=== PATIENT | female | born 1965 | race American Indian/Alaskan Native ===

== ENCOUNTER 2017-04-26 09:02 | Emergency (ER) | payer OTHER ==
[2017-04-26 10:17] LABS: Basophils % (Auto) 0.5 % (0.0-1.8); Eosinophils % (Auto) 0.1 % (0.0-4.3); Hematocrit 44.9 % (30.3-42.9); Hemoglobin 14.6 gm/dl (10.1-14.3); Mean Corpuscular HGB Conc 33 % (30-34); Mean Corpuscular Hemoglobin 29 pg (28-32); Mean Corpuscular Volume 90 fl (79-97); Platelet Count 261 K/mm3 (140-440); Red Blood Count 5.01 M/mm3 (3.65-5.03); Red Cell Distribution Width 14.1 % (13.2-15.2); White Blood Count 12.4 K/mm3 (4.5-11.0)
[2017-04-26 10:39] LABS: Alanine Aminotransferase 11 units/L (7-56); Albumin 4.6 g/dL (3.9-5); Albumin/Globulin Ratio 1.2 %; Alkaline Phosphatase 82 units/L (35-129); Anion Gap 21 mmol/L; BUN/Creatinine Ratio 14.28; Blood Urea Nitrogen 10 mg/dL (7-17); Calcium 9.8 mg/dL (8.4-10.2); Carbon Dioxide 25 mmol/L (22-30); Chloride 97.9 mmol/L (98-107); Glucose 129 mg/dL (65-100); Lipase 25 units/L (13-60); Potassium 3.6 mmol/L (3.6-5.0); Sodium 140 mmol/L (137-145); Total Protein 8.5 g/dL (6.3-8.2)
[2017-04-26] MEDS ORDERED: NACL 0.9% 1000 ML 1,000 ML IV ONE ×2 (13:38→16:35)
[2017-04-26] MEDS ORDERED: ZOFRAN IV ONE (13:38)
[2017-04-26] MEDS ORDERED: MORPHINE IV ONE (13:38)
--- NOTE | 2017-04-26 13:42 | Emergency Department Report ---
ED N/V/D HPI - General Chief complaint: Nausea/Vomiting/Diarrhea Stated complaint: PANCREATITIS/VOMITING X 2 DAYS Time Seen by Provider: 04/26/17 13:10 Source: patient Mode of arrival: Ambulatory Limitations: No Limitations - History of Present Illness Initial comments: 51-year-old female here with complaint of abdominal pain. Patient states that she's been recently drinking alcohol due to in the family. Over the last several days she's been having increasing abdominal pain. She states that she' s also had some nausea vomiting and diarrhea. She says someone told her she "may have pancreatitis". She denies fevers chills. Symptoms have been worsening for the past couple days. Her symptoms worsen with food. MD complaint: nausea, vomiting, diarrhea -: Gradual Description of Vomiting: watery Description of Diarrhea: water Location: epigastric Radiation: none Severity: moderate Quality: cramping Improves with: none Worsens with: eating - Related Data Previous Rx's Medication Instructions Recorded Last Taken Type Hydrocodone Bit/Acetaminophen 1 - 2 each PO Q6H PRN #20 tablet 06/24/13 Unknown Rx [Lortab 5-500 Tablet] Neomy/Polymyx B/Hc (Otic) Soln 4 drops OT TID #1 bottle 06/24/13 Unknown Rx [Cortisporin (Otic) Soln] Acetaminophen [Acetaminophen TAB] 1,000 mg PO Q6HR #60 tablet 04/26/17 Unknown Rx Naproxen [Naprosyn] 375 mg PO BID PRN #30 tablet 04/26/17 Unknown Rx Sulfamethoxazole/Trimethoprim 1 tab PO BID #14 tab 04/26/17 Unknown Rx [Bactrim 400-80 mg] Allergies Allergy/AdvReac Type Severity Reaction Status Date / Time No Known Allergies Allergy Unverified 06/24/13 05:37 ED Review of Systems ROS: Stated complaint: PANCREATITIS/VOMITING X 2 DAYS Other details as noted in HPI Comment: All other systems reviewed and negative Constitutional: denies: chills, fever Eyes: denies: eye pain, eye discharge, vision change ENT: denies: ear pain, throat pain Respiratory: denies: cough, shortness of breath, wheezing Cardiovascular: denies: chest pain, palpitations Endocrine: no symptoms reported Gastrointestinal: abdominal pain, nausea, vomiting, diarrhea Genitourinary: denies: urgency, dysuria, discharge Musculoskeletal: denies: back pain, joint swelling, arthralgia Skin: denies: rash, lesions Neurological: denies: headache, weakness, paresthesias Psychiatric: denies: anxiety, depression Hematological/Lymphatic: denies: easy bleeding, easy bruising ED Past Medical Hx - Past Medical History Hx Hypertension: Yes Additional medical history: Fibroids. PANCREATITIS - Surgical History Past Surgical History?: No - Family History Family history: no significant - Social History Smoking Status: Current Every Day Smoker Substance Use Type: Alcohol, Marijuana - Medications Home Medications: Home Medications Medication Instructions Recorded Confirmed Last Taken Type Hydrocodone Bit/Acetaminophen 1 - 2 each PO Q6H PRN #20 tablet 06/24/13 Unknown Rx [Lortab 5-500 Tablet] Neomy/Polymyx B/Hc (Otic) Soln 4 drops OT TID #1 bottle 06/24/13 Unknown Rx [Cortisporin (Otic) Soln] Acetaminophen [Acetaminophen TAB] 1,000 mg PO Q6HR #60 tablet 04/26/17 Unknown Rx Naproxen [Naprosyn] 375 mg PO BID PRN #30 tablet 04/26/17 Unknown Rx Sulfamethoxazole/Trimethoprim 1 tab PO BID #14 tab 04/26/17 Unknown Rx [Bactrim 400-80 mg] ED Physical Exam - General Limitations: No Limitations General appearance: alert, in no apparent distress - Head Head exam: Present: atraumatic, normocephalic - Eye Eye exam: Present: normal appearance. Absent: scleral icterus, conjunctival injection - ENT ENT exam: Present: mucous membranes dry - Neck Neck exam: Present: normal inspection - Respiratory Respiratory exam: Present: normal lung sounds bilaterally. Absent: respiratory distress - Cardiovascular Cardiovascular Exam: Present: regular rate, normal rhythm, normal heart sounds. Absent: systolic murmur, diastolic murmur, rubs, gallop - GI/Abdominal GI/Abdominal exam: Present: soft, tenderness, normal bowel sounds. Absent: distended, guarding, rebound (mild epigastric tenderness) - Extremities Exam Extremities exam: Present: normal inspection - Back Exam Back exam: Present: normal inspection. Absent: CVA tenderness (R), CVA tenderness (L) - Neurological Exam Neurological exam: Present: alert, oriented X3 - Psychiatric Psychiatric exam: Present: normal affect, normal mood - Skin Skin exam: Present: warm, dry, intact, normal color. Absent: rash ED Course Vital Signs 04/26/17 04/26/17 04/26/17 09:39 16:07 18:34 Temperature 98.8 F 99.1 F 98.9 F Pulse Rate 91 H 50 L 58 L Respiratory 18 18 18 Rate Blood Pressure 125/89 Blood Pressure 165/95 123/76 [Right] O2 Sat by Pulse 100 100 100 Oximetry ED Medical Decision Making - Lab Data Result diagrams: 04/26/17 09:55 04/26/17 09:55 Laboratory Results - last 24 hr 04/26/17 04/26/17 09:55 09:55 WBC 12.4 H RBC 5.01 Hgb 14.6 H Hct 44.9 H MCV 90 MCH 29 MCHC 33 RDW 14.1 Plt Count 261 Lymph % (Auto) 22.3 [place] % (Auto) 6.3 Eos % (Auto) 0.1 Baso % (Auto) 0.5 Lymph # 2.8 [place] # 0.8 Eos # 0.0 Baso # 0.1 Seg Neutrophils % 70.8 H Seg Neutrophils # 8.8 H Sodium 140 Potassium 3.6 Chloride 97.9 L Carbon Dioxide 25 Anion Gap 21 BUN 10 Creatinine 0.7 Estimated GFR > 60 BUN/Creatinine Ratio 14.28 Glucose 129 H Calcium 9.8 Total Bilirubin 0.60 AST 17 ALT 11 Alkaline Phosphatase 82 Total Protein 8.5 H Albumin 4.6 Albumin/Globulin Ratio 1.2 Lipase 25 - Medical Decision Making 51-year-old female with a history of pancreatitis here with complaint of abdominal pain. Patient states she's recently been drinking due to a in the family. On arrival is mildly tender epigastrium and appeared slightly dehydrated. Her labs were unremarkable. She did not have an acute abdomen and I do not believe that she needed to be admitted to the hospital for this. No further imaging warranted. She was given 2 rounds of pain medications and was able to tolerate by mouth she was discharged. Portions of this chart were dictated with dictation software. There may be dictation errors contained within this note. Critical care attestation.: If time is entered above; I have spent that time in minutes in the direct care of this critically ill patient, excluding procedure time. ED Disposition Clinical Impression: Pancreatitis Qualifiers: Chronicity: chronic Pancreatitis type: alcohol induced Qualified Code(s): K86.0 - Alcohol-induced chronic pancreatitis UTI (urinary tract infection) Qualifiers: Urinary tract infection type: acute cystitis Hematuria presence: without hematuria Qualified Code(s): N30.00 - Acute cystitis without hematuria Disposition: TO HOME OR SELFCARE Is pt being admited?: No Condition: Stable Instructions: Pancreatitis (ED), Urinary Tract Infection in Women (ED) Prescriptions: Acetaminophen [Acetaminophen TAB] 1,000 mg PO Q6HR #60 tablet Naproxen [Naprosyn] 375 mg PO BID PRN #30 tablet PRN Reason: Pain Sulfamethoxazole/Trimethoprim [Bactrim 400-80 mg] 1 tab PO BID #14 tab Referrals: PRIMARY CARE, [Primary Care Provider] - 3-5 Days
[2017-04-26] MEDS ORDERED: DILAUDID IV ONE (16:34)
[2017-04-26 17:30] LABS: Bacteria,Urine 1+ /HPF (Negative); Bilirubin,Urine NEG (Negative); Blood,Urine SM (Negative); Ketones,Urine 20 mg/dL (Negative); Leukocyte Esterase,Urine MOD (Negative); Mucus,Urine 3+ /HPF; Nitrite,Urine NEG (Negative); Urobilinogen,Urine < 2.0 mg/dL (<2.0)
--- NOTE | 2017-04-26 17:56 | Event Note ---
Date: 04/26/17 Evaluate patient patient's urine has 83 WBCs. Patient has symptoms of dysuria I will send patient home with Bactrim for 7 days. Discussed diagnosis of pancreatitis with patient. Recommended alcohol cessation for the patient. Discussed with patient return precautions such as nausea vomiting and severe abdominal pain. Additional verbal discharge instructions were given. Patient' s vital signs at time of discharge were within the normal limits.
[2017-04-26 18:46] VITALS: BP 123/76
== END 2017-04-26 18:46 | disposition home or self-care (01) ==
LOC: ED 09:02
DX: K85.90 Acute pancreatitis without necrosis or infection, unspecified (principal); N39.0 Urinary tract infection, site not specified; I10 Essential (primary) hypertension; F17.210 Nicotine dependence, cigarettes, uncomplicated; F12.10 Cannabis abuse, uncomplicated
CPT/HCPCS: 36415; 80053; 81001; 83690; 85025; 96361; 96374; 96375; 99283; J1170; J2270; J2405; J7030

== ENCOUNTER 2017-04-27 20:07 | Emergency (ER) | payer SELFPAY ==
[2017-04-27] MEDS ORDERED: DILAUDID IV ONE (20:43)
[2017-04-27] MEDS ORDERED: ZOFRAN IV ONE (20:44)
[2017-04-27] MEDS ORDERED: NACL 0.9% 1000 ML 1,000 ML IV ONE ×2 (20:48→22:25)
[2017-04-27] MEDS ORDERED: ROCEPHIN/NS 1 GM/50 ML 1 GM/50 ML BAG IV ONE (20:48)
[2017-04-27] MEDS ORDERED: NACL ONE (21:09)
[2017-04-27 21:21] LABS: Basophils % (Auto) 0.6 % (0.0-1.8); Eosinophils % (Auto) 1.5 % (0.0-4.3); Hematocrit 43.1 % (30.3-42.9); Hemoglobin 14.5 gm/dl (10.1-14.3); Mean Corpuscular HGB Conc 34 % (30-34); Mean Corpuscular Hemoglobin 30 pg (28-32); Mean Corpuscular Volume 90 fl (79-97); Platelet Count 232 K/mm3 (140-440); Red Blood Count 4.82 M/mm3 (3.65-5.03); Red Cell Distribution Width 13.8 % (13.2-15.2); White Blood Count 10.2 K/mm3 (4.5-11.0)
[2017-04-27 22:03] LABS: Alanine Aminotransferase 9 units/L (7-56); Albumin 4.1 g/dL (3.9-5); Albumin/Globulin Ratio 1.2 %; Alkaline Phosphatase 72 units/L (35-129); Anion Gap 16 mmol/L; BUN/Creatinine Ratio 11.42; Blood Urea Nitrogen 8 mg/dL (7-17); Carbon Dioxide 25 mmol/L (22-30); Chloride 99.6 mmol/L (98-107); Glucose 121 mg/dL (65-100); Lipase 55 units/L (13-60); Sodium 138 mmol/L (137-145); Total Protein 7.5 g/dL (6.3-8.2)
[2017-04-27 22:08] LABS: Potassium 2.9 mmol/L (3.6-5.0)
[2017-04-27] MEDS ORDERED: K-DUR PO ONE (22:11)
--- NOTE | 2017-04-27 23:07 | Cat Scan Report ---
FINAL REPORT PROCEDURE: CT abdomen and pelvis with contrast. TECHNIQUE: Computerized axial tomography of the abdomen and pelvis was performed after the IV injection of iodinated nonionic contrast. HISTORY: Epigastric abdominal pain. COMPARISON: No prior studies are available for comparison. FINDINGS: The lung bases are clear. There are no pleural effusions. The heart size is normal. The liver, pancreas and spleen appear normal. The gallbladder is present. There is a small partially enhancing mass in the lateral limb of the left adrenal gland. This measures 15.5 millimeters x 9.7 millimeters in cross-section. The mass is quite small but does not have the typical lower attenuation of an adenoma. Follow-up imaging to assess stability is recommended. Both kidneys appear normal in size and configuration. The abdominal aorta has a normal caliber. There is no retroperitoneal adenopathy. The unopacified gastrointestinal tract is unremarkable. A normal appendix is visible. The bladder, uterus and adnexal regions appear normal. The regional skeleton appears intact. IMPRESSION: Small left adrenal mass with follow-up recommended. Otherwise normal studies of the abdomen and pelvis.
[2017-04-28] MEDS ORDERED: PROTONIX IV ONE (01:10)
--- NOTE | 2017-04-28 01:10 | Emergency Department Report ---
ED Abdominal Pain HPI - General Chief Complaint: Abdominal Pain Stated Complaint: ABD PAIN/VOMITING Time Seen by Provider: 04/27/17 20:28 Source: patient Mode of arrival: Ambulatory Limitations: No Limitations - History of Present Illness Initial Comments: 51-year-old female with a past medical history hypertension, fibroids, and previous episode of pancreatitis secondary to elevated lipase 2 months ago presents to the hospital with epigastric pain 4 days and UTI. Patient complains of severe epigastric pain radiating into the bag that is constant times past 4 days. Positive nausea and vomiting with by mouth intolerance. Symptoms started after drinking alcohol. Similar episode 2 months ago after drinking alcohol and patient was told her lipase was elevated and she had a UTI. Patient was seen here yesterday for the same symptoms. Discharged on Bactrim, Tylenol, and Naprosyn. Patient was unable to tolerate any other oral medication due to persistent nausea and vomiting. Pain continues to be 10/10 in intensity. - Related Data Previous Rx's Medication Instructions Recorded Last Taken Type Hydrocodone Bit/Acetaminophen 1 - 2 each PO Q6H PRN #20 tablet 06/24/13 Unknown Rx [Lortab 5-500 Tablet] Neomy/Polymyx B/Hc (Otic) Soln 4 drops OT TID #1 bottle 06/24/13 Unknown Rx [Cortisporin (Otic) Soln] Acetaminophen [Acetaminophen TAB] 1,000 mg PO Q6HR #60 tablet 04/26/17 Unknown Rx Sulfamethoxazole/Trimethoprim 1 tab PO BID #14 tab 04/26/17 Unknown Rx [Bactrim 400-80 mg] HYDROcodone/APAP 5-325 [[place] 1 each PO Q6HR PRN #20 tablet 04/28/17 Unknown Rx 5/325] Ondansetron [Zofran Odt] 4 mg PO Q8HR PRN #20 tab.rapdis 04/28/17 Unknown Rx Pantoprazole [Protonix TAB] 20 mg PO QDAY #30 tablet. 04/28/17 Unknown Rx Potassium Chloride [K-Dur] 20 meq PO BID #6 tab 04/28/17 Unknown Rx Allergies Allergy/AdvReac Type Severity Reaction Status Date / Time No Known Allergies Allergy Unverified 06/24/13 05:37 ED Review of Systems ROS: Stated complaint: ABD PAIN/VOMITING Other details as noted in HPI Comment: All other systems reviewed and negative Other: Constitutional: No fevers chills Eyes: No eye pain visual changes or discharge ENT: No ear pain or throat pain Neck: Denies pain Respiratory: Denies cough wheezing shortness of breath Cardiovascular: Denies chest pain, palpitations, syncope GI: As per HPI : Denies dysuria Musculoskeletal: Pain radiates to the back Skin: Denies rash, lesions, erythema Neurologic: Denies headache, numbness, weakness Psychiatric: Denies suicidal ideation, hallucinations ED Past Medical Hx - Past Medical History Hx Hypertension: Yes Additional medical history: Fibroids. PANCREATITIS - Social History Smoking Status: Never Smoker Substance Use Type: Alcohol - Medications Home Medications: Home Medications Medication Instructions Recorded Confirmed Last Taken Type Hydrocodone Bit/Acetaminophen 1 - 2 each PO Q6H PRN #20 tablet 06/24/13 Unknown Rx [Lortab 5-500 Tablet] Neomy/Polymyx B/Hc (Otic) Soln 4 drops OT TID #1 bottle 06/24/13 Unknown Rx [Cortisporin (Otic) Soln] Acetaminophen [Acetaminophen TAB] 1,000 mg PO Q6HR #60 tablet 04/26/17 Unknown Rx Sulfamethoxazole/Trimethoprim 1 tab PO BID #14 tab 04/26/17 Unknown Rx [Bactrim 400-80 mg] HYDROcodone/APAP 5-325 [[place] 1 each PO Q6HR PRN #20 tablet 04/28/17 Unknown Rx 5/325] Ondansetron [Zofran Odt] 4 mg PO Q8HR PRN #20 tab.rapdis 04/28/17 Unknown Rx Pantoprazole [Protonix TAB] 20 mg PO QDAY #30 tablet.dr 04/28/17 Unknown Rx Potassium Chloride [K-Dur] 20 meq PO BID #6 tab 04/28/17 Unknown Rx ED Physical Exam - General Limitations: No Limitations - Other Other exam information: General: No limitations, patient is alert in no acute distress Head exam: Atraumatic, normocephalic Eyes exam: Normal appearance, pupils equal reactive to light, extraocular movements intact ENT: Moist mucous membrane, normal oropharynx Neck exam: Normal inspection, full range of motion, no meningismus nontender Respiratory exam: Clear to auscultation bilateral, no wheezes, rales, crackles Cardiovascular: Normal rate and rhythm, normal heart sounds Abdomen: Soft, nondistended, epigastric tenderness, with normal bowel sounds, no rebound, or guarding Extremity: Full range of motion normal inspection no deformity Back: Normal Inspection, full range of motion, no tenderness Neurologic: Alert, oriented x3, cranial nerves intact, no motor or sensory deficit Psychiatric: normal affect, normal mood Skin: Warm, dry, intact ED Course Vital Signs 04/27/17 04/27/17 04/27/17 20:13 21:16 21:30 Temperature 98.3 F Pulse Rate 81 55 L 54 L Respiratory 18 17 18 Rate Blood Pressure 185/115 184/97 O2 Sat by Pulse 100 99 Oximetry 04/27/17 04/27/17 04/27/17 22:00 22:30 23:00 Temperature Pulse Rate 54 L 65 63 Respiratory 18 43 H 16 Rate Blood Pressure 183/83 191/95 139/89 O2 Sat by Pulse 100 100 98 Oximetry 04/27/17 23:30 Temperature Pulse Rate 64 Respiratory 17 Rate Blood Pressure 165/93 O2 Sat by Pulse 100 Oximetry - Reevaluation(s) Reevaluation #1: 04/28/17 01:10 Patient states she feels better after receiving Dilaudid, Zofran. 1 L normal saline still in progress ED Medical Decision Making - Lab Data Result diagrams: 04/27/17 20:39 04/27/17 20:39 Lab Results 04/27/17 04/27/17 04/27/17 Range/Units 20:39 20:39 20:39 WBC 10.2 (4.5-11.0) K/mm3 RBC 4.82 (3.65-5.03) M/mm3 Hgb 14.5 H (10.1-14.3) gm/dl Hct 43.1 H (30.3-42.9) % MCV 90 (79-97) fl MCH 30 (28-32) pg MCHC 34 (30-34) % RDW 13.8 (13.2-15.2) % Plt Count 232 (140-440) K/mm3 Lymph % (Auto) 21.9 (13.4-35.0) % [place] % (Auto) 7.6 H (0.0-7.3) % Eos % (Auto) 1.5 (0.0-4.3) % Baso % (Auto) 0.6 (0.0-1.8) % Lymph # 2.2 (1.2-5.4) K/mm3 [place] # 0.8 (0.0-0.8) K/mm3 Eos # 0.1 (0.0-0.4) K/mm3 Baso # 0.1 (0.0-0.1) K/mm3 Seg Neutrophils % 68.4 (40.0-70.0) % Seg Neutrophils # 7.0 (1.8-7.7) K/mm3 Sodium 138 (137-145) mmol/L Potassium 2.9 L* (3.6-5.0) mmol/L Chloride 99.6 (98-107) mmol/L Carbon Dioxide 25 (22-30) mmol/L Anion Gap 16 mmol/L BUN 8 (7-17) mg/dL Creatinine 0.7 (0.7-1.2) mg/dL Estimated GFR > 60 ml/min BUN/Creatinine Ratio 11.42 % Glucose 121 H (65-100) mg/dL Calcium 9.0 (8.4-10.2) mg/dL Magnesium 1.90 (1.7-2.3) mg/dL Total Bilirubin 0.60 (0.1-1.2) mg/dL AST 15 (5-40) units/L ALT 9 (7-56) units/L Alkaline Phosphatase 72 (35-129) units/L Total Protein 7.5 (6.3-8.2) g/dL Albumin 4.1 (3.9-5) g/dL Albumin/Globulin Ratio 1.2 % Lipase 55 (13-60) units/L - Radiology Data Radiology results: report reviewed CT abdomen and pelvis IV contrast: Small left adrenal mass. Follow-up recommended. Otherwise normal. - Medical Decision Making Patient has a small adrenal mass and with the outpatient follow-up. No signs of pancreatitis based on CT imaging and laboratory findings. Patient be diagnosed with alcohol-induced gastritis. Naprosyn will be discontinued. PPI, pain medication, nausea medication will be prescribed. she'll be instructed to continue her Bactrim for UTI. Patient received Rocephin, and normal saline, Dilaudid, Zofran, Protonix in the ED with improvement in symptoms. By mouth potassium also provided and tolerated - Differential Diagnosis gastritis, pancreatitis, biliary colic, cholecystitis, gastroenteritis Critical Care Time: No Critical care attestation.: If time is entered above; I have spent that time in minutes in the direct care of this critically ill patient, excluding procedure time. ED Disposition Clinical Impression: Acute gastritis, Vomiting, Hypokalemia Disposition: TO HOME OR SELFCARE Is pt being admited?: No Does the pt Need Aspirin: No Condition: Stable Instructions: Gastritis (ED), Urinary Tract Infection in Women (ED), Hypokalemia (ED) Additional Instructions: Take the medication as prescribed. Return if symptoms worsen. Discontinue the Naprosyn because it makes increased stomach irritation. Use a good Rx card provided to make your medication reportable. Medications are typically cheaper at [facility] Prescriptions: HYDROcodone/APAP 5-325 [[place] 5/325] 1 each PO Q6HR PRN #20 tablet PRN Reason: Pain Ondansetron [Zofran Odt] 4 mg PO Q8HR PRN #20 tab.rapdis PRN Reason: Nausea And Vomiting Pantoprazole [Protonix TAB] 20 mg PO QDAY #30 tablet. Potassium Chloride [K-Dur] 20 meq PO BID #6 tab Referrals: PRIMARY CARE, [Primary Care Provider] - 3-5 Days [facility] [Provider Group] - 3-5 Days Time of Disposition: 01:45
[2017-04-28 01:13] LABS: Bilirubin,Urine NEG (Negative); Blood,Urine SM (Negative); Ketones,Urine 20 mg/dL (Negative); Leukocyte Esterase,Urine TR (Negative); Mucus,Urine FEW /HPF; Nitrite,Urine NEG (Negative); Protein,Urine <15 mg/dL mg/dL (Negative); Urobilinogen,Urine < 2.0 mg/dL (<2.0)
[2017-04-28] MEDS ORDERED: NACL 0.9% 1000 ML 1,000 ML ONE (03:07)
[2017-04-28] MEDS ORDERED: DILAUDID IV ONE (04:07)
[2017-04-28 05:16] VITALS: BP 126/72
== END 2017-04-28 05:10 | disposition home or self-care (01) ==
LOC: ED 20:07
DX: K29.00 Acute gastritis without bleeding (principal); E87.6 Hypokalemia
CPT/HCPCS: 36415; 74177; 80053; 81001; 83690; 83735; 85025; 87086; 99284; C9113; J0696; J1170; J2405; J7030; Q9967; 96365; 96375